=== PATIENT | male | born 1960 ===

== ENCOUNTER 2023-01-11 10:06 | Emergency (ER) | payer OTHER, SELFPAY ==
[2023-01-11 10:10] VITALS: BP 149/103; PULSE 84; RESP 20; TEMP 36.7; O2SAT 97; BMI 22.8
--- NOTE | 2023-01-11 10:13 | XR_ITS ---
The [address] [address] Patient Name: SHERRY GOTTI MRN: [id number] date: 1960 Sex: M Assigned Patient Location: ER Current Patient Location: ED.MAIN Accession/Order Number: [id number] Exam Date: 01/11/2023 10:20 Report Date: 01/11/2023 11:01 At the request of: NICOLETTE OLVERA Procedure: XR wrist LT min 3V PROCEDURE: XR wrist LT min 3V COMPARISON: None. HISTORY: pain FINDINGS: BONES:No acute fracture or dislocation. Moderate diffuse degenerative changes with joint space narrowing and marginal osteophyte formation. Chondrocalcinosis. SOFT TISSUES:Negative. No visible soft tissue swelling. EFFUSION:None visible. OTHER: Negative. XR/XR wrist LT min 3V IMPRESSION: Moderate osteoarthritis Electronically authenticated by: NEHEMIAH TRINH Date: 01/11/2023 11:01
--- NOTE | 2023-01-11 10:18 | ED.EXTPRO1 ---
HPI - Extremity Problem General Chief complaint: Extremity Problem, Nontraumatic Stated complaint: UPPER EXTREMITY PAIN TO LEFT WRIST Time Seen by Provider: 01/11/23 10:15 Source: patient Mode of arrival: walk-in Limitations: no limitations History of Present Illness HPI Narrative: pain, redness and swelling to the left wrist that began 3 days ago and has steadily worsened. No known injury - woke with the pain. No history of gout or septic arthritis. no systemic symptoms such as fever or vomiting. Nothing taken at home for pain. Related Data Previous Rx's Medication Instructions Recorded nabumetone 750 mg tablet 750 mg PO BID pain #20 tabs 01/11/23 Allergies Allergy/AdvReac Type Severity Reaction Status Date / Time No Known Drug Allergies Allergy Verified 01/11/23 10:10 PFSH PFS Social History Smoking status: Heavy tobacco smoker Exam Narrative Exam Narrative: Nurses notes and vital signs reviewed and patient is not hypoxic. afebrile General: Well-appearing and in no apparent distress. Skin: Warm, dry, no pallor noted. Eye: Pupils are equal, round and EOMI. No scleral icterus. Cardiovascular: normal peripheral perfusion. Respiratory: No accessory muscle use or respiratory distress. Musculoskeletal: tenderness, erythema and warmth to left wrist. Limited ROM due to pain. Fingers of left hand, left forearm, left elbow and left shoulder with normal ROM. No upper extremity edema/swelling Neurological: A&O x4. No cranial nerve dysfunction observed. No truncal ataxia. Moves all extremities. Sensation intact. Psychiatric: Cooperative and interactive. Normal mood and affect. Constitutional Vital Signs, click to edit/add: Last Vital Signs Temp 98.1 F 01/11/23 10:10 Pulse 84 01/11/23 10:10 Resp 20 01/11/23 10:10 BP 149/103 H 01/11/23 10:10 Pulse Ox 97 01/11/23 10:10 Course Vital Signs Vital signs: Vital Signs Temperature 98.1 F 01/11/23 10:10 Pulse Rate 84 01/11/23 10:10 Respiratory Rate 20 01/11/23 10:10 Blood Pressure 149/103 H 01/11/23 10:10 Pulse Oximetry 97 01/11/23 10:10 Temperature 98.1 F 01/11/23 10:10 Pulse Rate 84 01/11/23 10:10 Respiratory Rate 20 01/11/23 10:10 Blood Pressure 149/103 H 01/11/23 10:10 Pulse Oximetry 97 01/11/23 10:10 MDM - Extremity (Nontraumatic) MDM Narrative Medical decision making narrative: Blood drawn for CBC, ESR, CRP & uric acid. Xrays left wrist obtained and were unremarkable. CBC and uric acid were normal/negative. ESR and CRP were elevated. May be a case of pseudogout - patient received IM Solumedrol and prescribed relafen for pain. ED nurse applied a velcro adjustable splint to the left wrist for support and pain control. Patient neurovascularly intact distally afterward. PCP follow up recommended. ED return if he is worse Lab Data Labs: Lab Results 01/11/23 Range/Units 10:30 WBC 8.1 (4.0-11.0) 10^3/uL RBC 5.67 (4.70-6.10) 10^6/uL Hgb 18.0 (14.0-18.0) g/dL Hct 52.0 (42.0-54.0) % MCV 91.7 (80.0-94.0) fL MCH 31.7 (25.9-34.0) pg MCHC 34.6 (29.9-35.2) g/dL RDW 13.3 (11.0-15.0) % Plt Count 285 (150-450) 10^3/uL MPV 8.7 L (9.5-13.5) fL Neut % (Auto) 68.8 (43.0-75.0) % Lymph % (Auto) 21.1 (20.5-60.0) % [place] % (Auto) 6.4 (1.7-12.0) % Eos % (Auto) 2.5 (0.9-7.0) % Baso % (Auto) 0.6 (0.2-2.0) % Neut # (Auto) 5.6 (1.4-6.5) 10^3/uL Lymph # (Auto) 1.7 (1.2-3.8) 10^3/uL [place] # (Auto) 0.5 (0.3-0.8) 10^3/uL Eos # (Auto) 0.2 (0.0-0.7) 10^3/uL Baso # (Auto) 0.1 (0.0-0.1) 10^3/uL Abs Immat Gran (auto) 0.05 H (0.00-0.03) 10^3/uL Imm/Tot Granulo (auto) 0.6 H (0.0-0.5) % ESR 46 H (<=20) mm/hr Uric Acid 4.9 (3.5-7.2) mg/dL C-Reactive Protein 1.5 H (<=1.0) mg/dL Imaging Data xr wrist: My impression: No fracture or dislocation - osteoarthritis noted Radiologist's impression: Patient Name: SHERRY GOTTI MRN: [id number] date: 1960 Sex: M Assigned Patient Location: ER Current Patient Location: ED.MAIN Accession/Order Number: [id number] Exam Date: 01/11/2023 10:20 Report Date: 01/11/2023 11:01 At the request of: NICOLETTE OLVERA Procedure: XR wrist LT min 3V PROCEDURE: XR wrist LT min 3V COMPARISON: None. HISTORY: pain FINDINGS: BONES:No acute fracture or dislocation. Moderate diffuse degenerative changes with joint space narrowing and marginal osteophyte formation. Chondrocalcinosis. SOFT TISSUES:Negative. No visible soft tissue swelling. EFFUSION:None visible. OTHER: Negative. IMPRESSION: Moderate osteoarthritis Electronically authenticated by: NEHEMIAH TRINH Date: 01/11/2023 11:01 Discharge Plan Discharge Chief Complaint: Extremity Problem, Nontraumatic Clinical Impression: Acute wrist pain, Pseudogout of left wrist, Osteoarthritis Patient Disposition: Home, Self-Care Time of Disposition Decision: 11:03 Prescriptions / Home Meds: New nabumetone 750 mg tablet 750 mg PO BID Qty: 20 0RF Instructions: Arthralgia (ED), Swollen Joint (ED), Osteoarthritis (ED) Stand Alone Forms: Portal Instructions Referrals: Physician,Non-Staff, MD [Primary Care Provider] - 1 week
[2023-01-11 10:38] LABS: Basophils Absolute Auto 0.1 10^3/uL (0.0-0.1); Basophils Percent Auto 0.6 % (0.2-2.0); Eosinophils Absolute Auto 0.2 10^3/uL (0.0-0.7); Eosinophils Percent Auto 2.5 % (0.9-7.0); Immature Granulocytes Abs Auto 0.05 10^3/uL (0.00-0.03); Immature Granulocytes Pct Auto 0.6 % (0.0-0.5); Lymphocytes Absolute Auto 1.7 10^3/uL (1.2-3.8); Lymphocytes Percent Auto 21.1 % (20.5-60.0); Mean Corpuscular HGB Conc 34.6 g/dL (29.9-35.2); Mean Corpuscular Hemoglobin 31.7 pg (25.9-34.0); Mean Corpuscular Volume 91.7 fL (80.0-94.0); Mean Platelet Volume 8.7 fL (9.5-13.5); Monocytes Absolute Auto 0.5 10^3/uL (0.3-0.8); Monocytes Percent Auto 6.4 % (1.7-12.0); Neutrophils Absolute Auto 5.6 10^3/uL (1.4-6.5); Neutrophils Percent Auto 68.8 % (43.0-75.0); Platelet Count 285 10^3/uL (150-450); Red Blood Count 5.67 10^6/uL (4.70-6.10); Red Cell Distribution Width 13.3 % (11.0-15.0); White Blood Count 8.1 10^3/uL (4.0-11.0)
[2023-01-11 10:42] LABS: Erythrocyte Sedimentation Rate 46 mm/hr (<=20)
[2023-01-11 10:51] LABS: C Reactive Protein 1.5 mg/dL (<=1.0)
[2023-01-11 10:56] LABS: Uric Acid 4.9 mg/dL (3.5-7.2)
[2023-01-11] MEDS: METHYLPREDNISOLONE SOD SUCC PF 125 MG/2 ML VIAL IM (10:58)
== END 2023-01-11 11:16 | disposition home or self-care (01) ==
PROVIDERS: Emergency Provider Emergency Medicine
DX: M19.032 Primary osteoarthritis, left wrist (principal); M25.532 Pain in left wrist; M10.9 Gout, unspecified; F17.210 Nicotine dependence, cigarettes, uncomplicated
CPT/HCPCS: 36415; 73110; 84550; 85025; 85652; 86140; 96372; 99284; J2930